=== PATIENT | female | born 1975 | race Two or more races ===

== ENCOUNTER 2017-05-05 11:30 | Emergency (ER) | payer OTHER ==
--- NOTE | ~2017-05-05 | ER ---
PATIENT'S NAME: LONG REYES MA [facility] AGE: 41 Y [address] ROOM: [place] [address] LOCATION: [facility] ADMIT DATE: 05/05/2017 ER/Outpatient Report DISCHARGE DATE: 05/05/2017 FAMILY PHYSICIAN: PHYSICIAN, NO ATTENDING PHYSICIAN: Sarwat Mai Time of Arrival: 1130 hours. Time of Evaluation: 1145 hours. CHIEF COMPLAINT: Six weeks' with vaginal spotting. HISTORY OF PRESENT ILLNESS: This is a 41-year-old female, who presents to the ER with her who interprets for her. She states that she was evaluated last week at [facility] for her . She states they did do an ultrasound at that time and told her that she was approximately 6 weeks' . They noticed last evening, she had some spotting only after voiding when she wipes. They state initially it was dark brown, but then today, it has been bright red. She has not had to wear pads for her bleeding. She has had no troubles with urination. No pelvic pain. No back pain. No other problems at this time. The patient states she does have A positive blood type. ALLERGIES: NO KNOWN ALLERGIES. MEDICATIONS: vitamins. PAST MEDICAL HISTORY: Negative. PAST SURGICAL HISTORY: Lump in her right axillary. SOCIAL HISTORY: Denies smoking, drug, or alcohol use. REVIEW OF SYSTEMS: All systems were reviewed and were negative with the exception of those discussed in the HPI. PHYSICAL EXAMINATION: VITAL SIGNS: Weight 70 kg taken, blood pressure is 109/67, pulse 76, respirations 20, temperature 98.4 degrees tympanically, and saturations 98% on PATIENT'S NAME: LONG REYES MA [facility] AGE: 41 Y [address] ROOM: [place] [address] LOCATION: [facility] ADMIT DATE: 05/05/2017 ER/Outpatient Report DISCHARGE DATE: 05/05/2017 FAMILY PHYSICIAN: PHYSICIAN, NO ATTENDING PHYSICIAN: Sarwat Mai room air. Edilberto Coma Score is 15. GENERAL: Alert, calm, well-developed, 41-year-old, in no acute distress. HEENT: Head: Normocephalic. She does display moist mucous membranes. LUNGS: Clear to auscultation bilaterally. HEART: Regular rate and rhythm. ABDOMEN: Soft, it is nontender. She has good bowel sounds throughout. No masses are palpated. EXTREMITIES: No clubbing or cyanosis. She has full range of motion of all limbs. SKIN: Warm, dry, and intact. LABORATORY DATA AND X-RAYS: CBC: White count is 9.4, hemoglobin is 13.5, platelets 311. HCG is 2918.0. Urinalysis is negative for any infection. We did do an ultrasound. There is a single intrauterine gestational sac, and there is no detectable cardiac activity at this time. The cervix is closed. Impression from the radiologist, there is a visible intrauterine with pole, no visible detectable cardiac activity, consistent with intrauterine demise. IMPRESSION: Miscarriage. ASSESSMENT AND PLAN: I did discuss the patient's care with Dr. Mai. Also, I called Dr. Michel, who is on-call for [facility], and he would like her to follow up in clinic in the next couple of days. I did give her signs and symptoms to watch for. If she worsens, she should come back here to the emergency room. The patient and the patient's understand and agree with care. GARETH SAAVEDRA PA-C FOR SARWAT MAI, DO MALCOLM/supa /[id number] d: t: 05/08/17 1158, OUTPATIENT REPORT
[2017-05-05 12:28] LABS: BILIRUBIN URINE NEGATIVE (NEGATIVE); BLOOD URINE 50 /UL (NEGATIVE); COLOR URINE YELLOW (YELLOW); GLUCOSE URINE NEGATIVE (NEGATIVE); KETONE URINE NEGATIVE (NEGATIVE); LEUKOCYTES URINE NEGATIVE /UL (NEGATIVE); NITRITE URINE NEGATIVE (NEGATIVE); PROTEIN URINE NEGATIVE (NEGATIVE); TURBIDITY URINE CLEAR (CLEAR); UROBILINOGEN URINE NORMAL (NORMAL)
[2017-05-05 12:41] LABS: BACTERIA URINE FEW (NEGATIVE); MUCUS URINE 1+ (NEGATIVE); RBC URINE 0-2 #/HPF (NEGATIVE); WBC URINE 0-2 #/HPF (NEGATIVE)
[2017-05-05 13:27] LABS: BASOPHIL # 0.1 K/uL (0.0-0.2); BASOPHIL % 1.2 %; EOSINOPHIL # 0.7 K/uL (0.0-0.5); EOSINOPHIL % 7.2 %; HEMATOCRIT 39.8 % (33.0-46.0); HEMOGLOBIN 13.5 g/dL (11.0-15.0); IMMATURE GRANULOCYTE % 0.4 %; LYMPHOCYTE # 2.2 K/uL (0.8-4.0); LYMPHOCYTE % 23.1 %; MCH 31.5 pg (27.0-34.0); MCHC 33.9 gm/dL (32.0-36.5); MONOCYTE # 0.5 K/uL (0.0-1.0); MONOCYTE % 5.8 %; MPV 8.8 fl (9.4-12.4); NEUTROPHIL # (ANC) 5.8 K/uL (1.8-7.8); NEUTROPHIL % 62.3 %; NRBC % 0 /100WBC (0-0.00); PLATELET COUNT 301 K/uL (150-450); RBC 4.28 M/uL (3.50-5.50); WBC 9.4 K/uL (4.0-11.0)
[2017-05-06] MEDS ORDERED: METHERGINE0.2 M1 PO (22:45)
[2017-05-06] MEDS ORDERED: PERCOCET 5-3251 EACH PO (22:46)
[2017-05-06] MEDS ORDERED: VIBRAMYCIN PO (22:48)
== END 2017-05-05 14:37 | disposition disaster alternative care site (69) ==
LOC: GMED 11:30
PROVIDERS: Emergency Medicine
DX: O03.9 Complete or unspecified spontaneous abortion without complication (principal); Z98.890 Other specified postprocedural states; Z79.899 Other long term (current) drug therapy

== ENCOUNTER 2017-05-06 19:53 | Day surgery (SDC) | payer OTHER ==
--- NOTE | ~2017-05-06 | OR ---
PATIENT'S NAME: LONG REYES MA [facility] AGE: 41 Y [address] ROOM: [place] [address] LOCATION: [facility] ADMIT DATE: 05/06/2017 OR/Procedure Report DISCHARGE DATE: FAMILY PHYSICIAN: Physician, Unknown ATTENDING PHYSICIAN: Elvia Matthew SURGEON: Chanelle Michel MD TUCKPOINTER: No dental chairside assistant. DATE OF PROCEDURE: 05/06/2017 PREOPERATIVE DIAGNOSIS: Missed spontaneous . POSTOPERATIVE DIAGNOSIS: Missed spontaneous . PROCEDURE: Uterine dilation and curettage. ANESTHESIA: General endotracheal anesthesia. ESTIMATED BLOOD LOSS: 100 mL. CLINICAL INDICATION: The patient is at approximately 6 weeks' gestational age with a known miscarriage. She would present to the emergency room with bleeding. She desired to undergo D and C. She believes her blood type to be A positive. The patient understood the indications, procedures, risks, and alternatives. Informed consent was obtained using a transmission repairer service. FINDINGS: The endometrial cavity sounded to 11 cm. Old necrotic material present in the uterus and old necrotic material present in the cervical os at the start of the procedure. OBJECTIVE PROCEDURES: The patient was taken to the operating room and given general endotracheal tube anesthesia with good results, placed in a lithotomy position, prepped and draped in the usual fashion. Posterior weighted speculum and anterior vaginal retractor were inserted into the vagina. Single- tooth tenaculum was placed about the anterior cervical lip. The endometrial cavity was sounded to 11 cm using progressively enlarging metallic dilators. The cervix was dilated to a point which would readily accept the #8 VAC curette. This was introduced into the endometrial cavity. Using circular motion, the endometrial cavity was effectively curetted. Passing a sharp curette failed to retrieve additional tissue. Passing the polyp forceps failed to retrieve additional tissue. One final pass with the VAC curette to retrieve any residual debris. Good hemostasis was obtained. Vaginal instruments were retrieved. The patient tolerated the procedure well and was taken to the recovery room in good condition. PATIENT'S NAME: LONG REYES MA [facility] AGE: 41 Y [address] ROOM: [place] [address] LOCATION: [facility] ADMIT DATE: 05/06/2017 OR/Procedure Report DISCHARGE DATE: FAMILY PHYSICIAN: Physician, Unknown ATTENDING PHYSICIAN: Elvia Matthew CHANELLE MD MAAME GRIMM/supa /[id number] d: 05/06/17 2354 t: 05/15/17 1830, OPERATIVE SUMMARY
--- NOTE | ~2017-05-06 | ER ---
PATIENT'S NAME: LONG REYES MA [facility] AGE: 41 Y [address] ROOM: [place] [address] LOCATION: ED ADMIT DATE: 05/06/2017 ER/Outpatient Report DISCHARGE DATE: FAMILY PHYSICIAN: Physician, Unknown ATTENDING PHYSICIAN: Marva Alvarado TIME OF ARRIVAL: 1953 hours. TIME SEEN: 2030 hours. IDENTIFICATION: A 41-year-old female with a chief complaint of vaginal bleeding and cramping. HISTORY OF PRESENT ILLNESS: The patient is a 41-year-old G4, P2 spontaneous AB1 female at 6-1/2 weeks gestation per previous ultrasound. The patient was seen yesterday in the emergency room with miscarriage. She has had an increase in bleeding with soaking 2 pads in the last 2 hours and increasing cramping. She was seen in the office today by Dr. Marie and had an ultrasound last night showing an intrauterine with no pole and no visible or detectable activity consistent with intrauterine demise. She had a repeat ultrasound in the office today and was told to come in if she had increase in bleeding or cramping for D and C. She has no other problems or concerns. ALLERGIES: NO KNOWN DRUG ALLERGIES. CURRENT MEDICATIONS: 1. Tylenol. 2. vitamins. 3. Folic acid. MEDICAL PROBLEMS: Denies. PRIOR SURGERIES: section x2 and a cyst removed from her right breast. SOCIAL HISTORY: The patient lives in [place]. She is . She does not work outside the home. Tobacco use, denies. Alcohol use, denies. Drug use, denies. REVIEW OF SYSTEMS: PATIENT'S NAME: LONG REYES MA [facility] AGE: 41 Y [address] ROOM: [place] [address] LOCATION: ED ADMIT DATE: 05/06/2017 ER/Outpatient Report DISCHARGE DATE: FAMILY PHYSICIAN: Physician, Unknown ATTENDING PHYSICIAN: Marva Alvarado All systems reviewed and negative other than what is noted in the HPI. PHYSICAL EXAMINATION: VITAL SIGNS: Weight 70 kg, blood pressure 118/89, pulse 78, respirations 14, temp 98.6, and sats 98%. GENERAL: A 41-year-old female in obvious distress with cramping. HEENT: Unremarkable. LUNGS: Clear to auscultation. HEART: Regular rate and rhythm. ABDOMEN: Soft, nondistended, tender to palpation in the lower abdomen. ABDOMEN: No rebound or guarding. PELVIC: External genitalia normal. Vagina, moderate amount of blood in the vaginal vault. Cervix is posterior, os is closed, uterus is consistent with a 7-week intrauterine . She is diffusely tender to moderate palpation. LABORATORY DATA: Quantitative hCG 1625 (down from 2918 yesterday), hemoglobin 12.6, down from 13.5 yesterday, white count 13,000. IMPRESSION AND PLAN: Missed with increase in pain and bleeding. Dr. Michel was consulted for dilation and curettage, her blood type is A+, and she was taken to the operating room in stable condition. MARVA ALVARADO MD CAR/modl /[id number] d: 05/07/17 0119 t: 05/09/17 0658, OUTPATIENT REPORT
[2017-05-06 21:21] LABS: BASOPHIL # 0.1 K/uL (0.0-0.2); BASOPHIL % 0.6 %; EOSINOPHIL # 0.6 K/uL (0.0-0.5); EOSINOPHIL % 4.3 %; HEMATOCRIT 37.1 % (33.0-46.0); HEMOGLOBIN 12.6 g/dL (11.0-15.0); IMMATURE GRANULOCYTE # 0.1 K/uL (0.0-0.3); IMMATURE GRANULOCYTE % 0.4 %; LYMPHOCYTE # 1.9 K/uL (0.8-4.0); LYMPHOCYTE % 14.5 %; MCH 31.6 pg (27.0-34.0); MONOCYTE # 0.8 K/uL (0.0-1.0); MONOCYTE % 5.9 %; NEUTROPHIL # (ANC) 9.7 K/uL (1.8-7.8); NEUTROPHIL % 74.3 %; NRBC % 0 /100WBC (0-0.00); PLATELET COUNT 267 K/uL (150-450); RBC 3.99 M/uL (3.50-5.50)
[2017-05-06] MEDS ORDERED: METHERGINE0.2 M1 PO (22:45)
[2017-05-06] MEDS ORDERED: PERCOCET 5-3251 EACH PO (22:46)
[2017-05-06] MEDS ORDERED: VIBRAMYCIN PO (22:48)
== END 2017-05-06 23:30 | disposition disaster alternative care site (69) ==
LOC: GMED 19:53 → GSDC 21:44 → GMED 05-08 09:02
PROVIDERS: Family Medicine
PROC: 10D17ZZ Extraction of Products of Conception, Retained, Via Natural or Artificial Opening (ICD-10-PCS; principal; 2017-05-06)
DX: O02.1 Missed abortion (principal); Z98.890 Other specified postprocedural states
CPT/HCPCS: J2210; J2590; J7120